=== PATIENT | male | born 1990 | race African-American/Black ===

== ENCOUNTER 2016-09-22 18:20 | Emergency (ER) | payer BC ==
[~2016-09-22 18:20] MED LIST: BACTRIM DS TABL1 TA1 PO; DICLOFENAC PO; FLEXERIL PO; IBUPROFEN PO; IBUPROFEN800 MG PO; NO MEDICATIONS; OMNICEF PO; PERCOCET5/325 PO; VOLTAREN50 MG PO
[2016-09-22 19:23] LABS: URINE SOURCE CLEAN CATCH
[2016-09-22 19:28] LABS: URINE APPEARANCE CLEAR; URINE BILIRUBIN NEG (NEG); URINE BLOOD TRACE-INTACT (NEG); URINE COLOR YELLOW; URINE GLUCOSE NEG (NORM); URINE KETONE NEG (NEG); URINE LEUKOCYTE ESTERASE 2+ (NEG); URINE NITRATE NEG (NEG); URINE PROTEIN NEG (NEG); URINE SPECIFIC GRAVITY 1.025 (1.003-1.035); URINE UROBILINOGEN 0.2 MG/DL (NORM)
[2016-09-22 19:30] LABS: MICRO INDICATED? YES
[2016-09-22 19:34] LABS: CULTURE INDICATED? YES; URINE BACTERIA NEG (NEG); URINE MUCUS PRESENT; URINE SQUAMOUS EPITHELIAL CELL FEW /[HPF]; URINE WBC 50-100 /[HPF] (0-5)
[2016-09-25 11:02] LABS: CHLAMYDIA TRACH Not Detected (Not Detected); N GONOR Detected (Not Detected)
== END 2016-09-22 20:20 | disposition home or self-care (01) ==
LOC: SED 18:20
PROVIDERS: Nurse Practitioner
DX: N34.2 Other urethritis (principal); N30.00 Acute cystitis without hematuria
CPT/HCPCS: 81003; 87086; 87491; 87591; 96372; 99283; J0696

== ENCOUNTER 2016-11-11 06:58 | Emergency (ER) | payer SELFPAY | END 2016-11-11 07:48 | disposition home or self-care (01) | LOC: SED 06:58 | DX: Z20.2 Contact with and (suspected) exposure to infections with a predominantly sexual mode of transmission (principal) | CPT/HCPCS: 96372; 99282; J0696 ==